=== PATIENT | female | born 1985 | race Two or more races ===

== ENCOUNTER 2024-03-10 10:24 | Emergency (ER) | payer SELFPAY ==
[~2024-03-10] VITALS: Ht 170.2 cm; Wt 91.0 kg
[2024-03-10 10:26] VITALS: O2SAT 99
[2024-03-10 10:56] LABS: BASOPHILS % 0.2 % (0.0-2.0); EOSINOPHILS % 0.6 % (0.0-5.0); HEMATOCRIT. 30.2 % (36.0-48.0); HEMOGLOBIN. 9.9 g/dL (12.0-16.0); LYMPHOCYTES % 9.1 % (20.0-50.0); MEAN CORPUSCULAR HGB CONC 32.7 g/dL (31.0-37.0); MEAN CORPUSCULAR VOLUME 85.6 fL (81.0-99.0); MEAN PLATELET VOLUME 7.7 fl (7.4-10.4); MONOCYTES % 5.2 % (2.0-8.0); NEUTROPHILS % 84.9 % (40.0-76.0); PLATELET 206 x1000/uL (130-400); RED BLOOD CELL COUNT 3.53 mill/uL (4.2-5.4); RED CELL DISTRIBUTION WIDTH 16.9 % (11.6-14.6); WHITE BLOOD COUNT 11.9 x1000/uL (4.5-11.0)
[2024-03-10 11:06] LABS: CHLORIDE 108 mEq/L (98-107); POTASSIUM 3.8 mEq/L (3.5-5.1); SODIUM 136 mEq/L (136-145)
[2024-03-10 11:07] LABS: CALCIUM 8.8 mg/dL (8.7-10.4); CARBON DIOXIDE 21 mEq/L (21-32)
[2024-03-10 11:12] LABS: CREATININE 0.6 mg/dL (0.6-1.0); GLUCOSE 163 mg/dL (70-105); UREA NITROGEN BLOOD 7 mg/dL (9-23)
[2024-03-10 11:13] LABS: ALANINE AMINOTRANSFERASE 15 IU/L (10-49); ASPARTATE AMINOTRANSFERASE 22 IU/L (<34)
[2024-03-10 11:14] LABS: ALBUMIN 3.4 g/dL (3.2-4.8); BILIRUBIN TOTAL 0.5 mg/dL (0.1-1.0); PROTEIN TOTAL 6.3 g/dL (6.0-8.3)
[2024-03-10 11:34] LABS: CLARITY URINE CLEAR (CLEAR); COLOR URINE YELLOW (YELLOW); GLUCOSE URINE TRACE (NEGATIVE); KETONES URINE NEGATIVE (NEGATIVE); LEUKOCYTE ESTERASE URINE TRACE (NEGATIVE); NITRITE URINE NEGATIVE (NEGATIVE); OCCULT BLOOD URINE NEGATIVE (NEGATIVE); PROTEIN URINE NEGATIVE (NEGATIVE); SPECIFIC GRAVITY URINE 1.013 (1.005-1.030)
[2024-03-10 11:48] LABS: B-HCG QUANTITATIVE 34361 mIU/mL (<3)
[2024-03-10 11:59] VITALS: BP 105/58; PULSE 80; RESP 17; TEMP 37.11408; O2SAT 99
[2024-03-10 12:01] LABS: SQUAMOUS EPITHELIAL CELL URINE 1+ /lpf (RARE/1+)
[2024-03-10 12:02] LABS: BACTERIA URINE 2+; RBC URINE 0-2 /hpf (0-2); WBC URINE 0-2 /hpf (0-2)
== END 2024-03-10 12:04 | disposition left against medical advice (07) ==
LOC: EDBD 10:24 → ER 10:24
DX: O26.893 Other specified pregnancy related conditions, third trimester (principal); R10.2 Pelvic and perineal pain; Z3A.36 36 weeks gestation of pregnancy
CPT/HCPCS: 36415; 76815; 80053; 81003; 84702; 85025; 99284